=== PATIENT | male | born 1945 | race Caucasian/White ===

== ENCOUNTER 2023-03-27 08:14 | Outpatient (CLI) | payer MEDICARE | END 2023-03-27 08:15 | disposition home or self-care (01) | LOC: CSHCT 08:14 | PROVIDERS: ATTEND Internal Medicine Critical Care Medicine | DX: C64.9 Malignant neoplasm of unspecified kidney, except renal pelvis (principal); C78.39 Secondary malignant neoplasm of other respiratory organs; J39.8 Other specified diseases of upper respiratory tract; R91.1 Solitary pulmonary nodule | CPT/HCPCS: 70490; 71250 ==